=== PATIENT | male | born 1970 | race Caucasian/White ===

== ENCOUNTER 2017-04-02 16:31 | Emergency (ER) | payer MEDICAID, OTHER ==
[~2017-04-02] VITALS: Ht 170.2 cm; Wt 81.6 kg
--- NOTE | 2017-04-02 16:35 | NUR ---
C/O SI BY OD ON HEROIN DENIES HI, NAD NOTED, VSS, RESP EVEN AN UNLABORED, AAOX4, VERY PLEASANT AND COMPLIANT WITH CARE. SAFETY MEASURES IMPLEMENTED. WAITING FOR MD BANEGAS.
[2017-04-02 17:01] LABS: BASOPHILS # (AUTO) 0.1 /CMM (0.0-0.2); BASOPHILS % (AUTO) 0.6 % (0.0-2.0); EOSINOPHILS # (AUTO) 0.4 /CMM (0.0-0.7); EOSINOPHILS % (AUTO) 4.8 % (0.0-6.0); HEMATOCRIT 41 % (39-51); HEMOGLOBIN 14.3 g/dL (13.5-17.5); LYMPHOCYTES # (AUTO) 2.5 /CMM (0.8-4.8); MEAN CORPUSCULAR HEMOGLOBIN 30 PG (26.0-33.0); MEAN CORPUSCULAR HGB CONC 35 g/dl (31.0-36.0); MEAN CORPUSCULAR VOLUME 87 fL (80-96); MONOCYTES # (AUTO) 0.6 /CMM (0.1-1.30); MONOCYTES % (AUTO) 7.2 % (2.0-12.0); NEUTROPHILS # (AUTO) 4.9 /CMM (1.8-8.9); NEUTROPHILS % (AUTO) 57.4 % (43.0-81.0); PLATELET COUNT (AUTO) 362 /CMM (150-450); RED BLOOD CELL COUNT(AUTO) 4.71 MIL/uL (4.5-6.0); WHITE BLOOD COUNT (AUTO) 8.5 K/uL (4.3-11.0)
[2017-04-02 17:03] LABS: APPEARANCE,URINE Clear (CLEAR); BILIRUBIN,URINE Negative (NEGATIVE); BLOOD, URINE Trace-intact Ery/uL (NEGATIVE); COLOR,URINE Yellow (YELLOW); KETONES,URINE Negative (NEGATIVE); LEUKOCYTE ESTERASE ,URINE Trace (NEGATIVE); NITRITE, URINE Negative (NEGATIVE); PH,URINE 5.5 (5.0-8.0); PROTEIN,URINE Negative (NEGATIVE); UGLUCOSE Negative (NEGATIVE); UROBILINOGEN,URINE 0.2 EU/dL (0.2)
[2017-04-02 17:11] LABS: CALCIUM, SERUM 9.2 mg/dL (8.5-10.1); CARBON DIOXIDE 27 mmol/L (21-32); CHLORIDE 102 mmol/L (98-107); CREATININE 1.2 mg/dL (0.6-1.3); GLUCOSE 111 mg/dL (74-106); SODIUM SERUM 137 mmol/L (136-145); UREA NITROGEN, BLOOD 18 mg/dL (7-18)
[2017-04-02 17:16] LABS: ALANINE AMINOTRANSFERASE 24 U/L (12-78); ALBUMIN 3.9 g/dL (3.4-5.0); ALCOHOL, BLOOD 5 mg/dL (0-0); ALKALINE PHOSPHATASE 82 U/L (46-116); ASPARTATE AMINOTRANSFERASE 34 U/L (15-37); BILIRUBIN,DIRECT 0.1 mg/dL (0.0-0.2); BILIRUBIN,TOTAL 0.4 mg/dL (0.2-1.0); TOTAL PROTEIN, SERUM 7.9 g/dL (6.4-8.2)
[2017-04-02 17:17] LABS: SALICYLATE 1.3 mg/dL (2.8-20.0)
[2017-04-02 17:18] LABS: ACETAMINOPHEN < 2 ug/ml (10-30)
[2017-04-02 17:25] LABS: BACTERIA,URINE Rare /HPF (None Seen); SQUAMOUS EPITHELIAL CELL,UR Few /HPF (None Seen); WBC,URINE NONE SEEN /HPF (0-3)
--- NOTE | 2017-04-02 18:09 | NUR ---
CALLED [facility] FOR PSYCH EVAL
[2017-04-02] MEDS ORDERED: ONDANSETRON 4 MG TAB.RAPDIS SL ONE (20:30)
[2017-04-02] MEDS ORDERED: ONDANSETRON 4 MG TAB.RAPDIS ONE (20:54)
--- NOTE | 2017-04-02 21:03 | NUR ---
Patient is resting comfortably in bed with eyes closed. Easily aroused. VSS
--- NOTE | 2017-04-02 22:11 | NUR ---
CALLED [facility] FOR TRANSPORTATION GOING TO [facility] ETA 90 MIN
--- NOTE | 2017-04-02 22:12 | NUR ---
RN TO RN REPORT CAN BE GIVEN AT [phone], ADMITTING PSYCHIATRIST DR. NORWOOD, ADMITTING DIAGNOSIS BIPOLAR DISORDER.
--- NOTE | 2017-04-02 22:22 | NUR ---
CALLED [facility], FOR REPORT RACHEL, CHARGE NURSE WILL CALL BACK, IF NOT PHONE CALL RETURN WILL CALL AGAIN IN 10 MINS
[2017-04-02 22:40] VITALS: BP 126/78
--- NOTE | 2017-04-02 22:42 | NUR ---
REPORT GIVEN TO SAMMY.
--- NOTE | 2017-04-02 23:21 | NUR ---
Patient is resting comfortably in bed with eyes closed. Easily aroused. VSS
--- NOTE | 2017-04-02 23:43 | NUR ---
[facility] AT BEDSIDE FOR TRANSPORT TO [facility]
== END 2017-04-02 23:45 ==
LOC: ER 16:34
DX: R45.851 Suicidal ideations (principal); F15.10 Other stimulant abuse, uncomplicated; F90.9 Attention-deficit hyperactivity disorder, unspecified type; F17.200 Nicotine dependence, unspecified, uncomplicated; F11.10 Opioid abuse, uncomplicated; F10.10 Alcohol abuse, uncomplicated
CPT/HCPCS: 36415; 80048; 80076; 80305; 80329; 81001; 85025; 99285; A4606; G0480 ×2; Q0162; Z7610; 81000-TC

== ENCOUNTER 2017-04-10 22:31 | Emergency (ER) | payer MEDICAID ==
[~2017-04-10] VITALS: Ht 170.2 cm; Wt 81.6 kg
--- NOTE | 2017-04-10 22:39 | NUR ---
Olive denney in [facility] - 04/10/17 [address] MEYERS AT [facility] FOR MAKENZIE.
--- NOTE | 2017-04-10 22:45 | NUR ---
PT AMBULATORY TO ER BD 12. PT IS C/O SIUICIDAL IDEATION W/ PLAN ON OVERDOSING ON HEROIN. PT APPEARS PARANOID AND SUSPISCIOUS. PLACED ON SI PRECAUTION. PT IS CALM, VERBALLY RESPONSIVE. STABLE VITALS. AWAITING MD BANEGAS.
--- NOTE | 2017-04-10 22:47 | NUR ---
DR MEYERS AT BEDSIDE FOR EVAL.
--- NOTE | 2017-04-10 22:48 | NUR ---
Olive denney in [facility] - 04/10/17 at 2319 by JULIANNA SCOURING TRAIN OPERATOR AT BEDSIDE FOR EMAAL.
--- NOTE | 2017-04-10 22:48 | NUR ---
LOCOMOTIVE ENGINEER ELECTRIC AT BEDSIDE FOR BLOOD DRAW.
[2017-04-10 22:52] LABS: BASOPHILS % (AUTO) 0.5 % (0.0-2.0); EOSINOPHILS # (AUTO) 0.3 /CMM (0.0-0.7); EOSINOPHILS % (AUTO) 2.6 % (0.0-6.0); HEMATOCRIT 44 % (39-51); HEMOGLOBIN 14.6 g/dL (13.5-17.5); LYMPHOCYTES # (AUTO) 2.1 /CMM (0.8-4.8); LYMPHOCYTES % (AUTO) 21.5 % (20.0-44.0); MEAN CORPUSCULAR HEMOGLOBIN 29 PG (26.0-33.0); MEAN CORPUSCULAR HGB CONC 33 g/dl (31.0-36.0); MEAN CORPUSCULAR VOLUME 89 fL (80-96); MONOCYTES # (AUTO) 0.9 /CMM (0.1-1.30); MONOCYTES % (AUTO) 9.6 % (2.0-12.0); NEUTROPHILS # (AUTO) 6.3 /CMM (1.8-8.9); NEUTROPHILS % (AUTO) 65.8 % (43.0-81.0); PLATELET COUNT (AUTO) 274 /CMM (150-450); RDW COEFFICIENT OF VARIATION 13.1 (11.5-15.0); RED BLOOD CELL COUNT(AUTO) 4.96 MIL/uL (4.5-6.0); WHITE BLOOD COUNT (AUTO) 9.5 K/uL (4.3-11.0)
[2017-04-10 22:54] LABS: APPEARANCE,URINE CLEAR (CLEAR); BILIRUBIN,URINE NEGATIVE (NEGATIVE); BLOOD, URINE NEGATIVE Ery/uL (NEGATIVE); KETONES,URINE NEGATIVE (NEGATIVE); LEUKOCYTE ESTERASE ,URINE NEGATIVE (NEGATIVE); NITRITE, URINE NEGATIVE (NEGATIVE); PH,URINE 5.5 (5.0-8.0); PROTEIN,URINE TRACE mg/dl (NEGATIVE); UGLUCOSE NEGATIVE (NEGATIVE); UROBILINOGEN,URINE 0.2 EU/dL (0.2)
[2017-04-10 22:55] LABS: COLOR,URINE DARK YELLOW (YELLOW)
[2017-04-10 22:59] LABS: BACTERIA,URINE Moderate /HPF (None Seen); MUCUS,URINE Few /LPF (None Seen); RBC,URINE 0-2 /HPF (0-2); SPERM,URINE Few /HPF (None Seen); SQUAMOUS EPITHELIAL CELL,UR Few /HPF (None Seen)
[2017-04-10 23:22] LABS: ALANINE AMINOTRANSFERASE 35 U/L (12-78); ALBUMIN 4.2 g/dL (3.4-5.0); ALCOHOL, BLOOD < 3 mg/dL (0-0); ALKALINE PHOSPHATASE 78 U/L (46-116); ASPARTATE AMINOTRANSFERASE 26 U/L (15-37); BILIRUBIN,DIRECT 0.1 mg/dL (0.0-0.2); BILIRUBIN,TOTAL 0.9 mg/dL (0.2-1.0); CALCIUM, SERUM 9.4 mg/dL (8.5-10.1); CARBON DIOXIDE 26 mmol/L (21-32); CHLORIDE 103 mmol/L (98-107); CREATININE 1.1 mg/dL (0.6-1.3); GLUCOSE 102 mg/dL (74-106); POTASSIUM 3.9 mmol/L (3.5-5.1); SODIUM SERUM 137 mmol/L (136-145); TOTAL PROTEIN, SERUM 8.2 g/dL (6.4-8.2); UREA NITROGEN, BLOOD 21 mg/dL (7-18)
[2017-04-10 23:25] LABS: ACETAMINOPHEN 0 ug/ml (10-30); SALICYLATE 0.7 mg/dL (2.8-20.0)
--- NOTE | 2017-04-10 23:40 | NUR ---
REPORT TO CHARGE NURSE STEPHEN FOR ELOISE.
--- NOTE | 2017-04-11 08:16 | NUR ---
CALLED FOR FOOD TRAY
--- NOTE | 2017-04-11 09:10 | NUR ---
CALLED [facility] FOR UPDATE ON BED - SPOKE WITH TENISHA WHO STATED THAT THEY ARE EXPECTING DISCHARGES TODAY BUT BEDS MAY NOT BE AVAILABLE UNTIL 1200 TODAY - THEY WILL CALL IF ANYTHING IS AVAILABLE SOONER
[2017-04-11 11:25] VITALS: BP 135/85
--- NOTE | 2017-04-11 11:25 | NUR ---
Patient eloped from facility. ER notified. DR JOHNSON
== END 2017-04-11 11:27 | disposition left against medical advice (07) ==
LOC: ER 22:33
DX: R45.851 Suicidal ideations (principal); F31.9 Bipolar disorder, unspecified; F90.9 Attention-deficit hyperactivity disorder, unspecified type; F17.200 Nicotine dependence, unspecified, uncomplicated
CPT/HCPCS: 36415; 80048; 80076; 80305; 80329; 81001; 85025; 87086; 99284; A4606; G0480 ×2; Z7610; 81000-TC

== ENCOUNTER 2017-10-26 08:28 | Emergency (ER) | payer MEDICAID, OTHER ==
[~2017-10-26] VITALS: Ht 170.2 cm; Wt 81.6 kg
--- NOTE | 2017-10-26 09:00 | NUR ---
PT [id number] WITH C/O DEPRESSION AND SI. SEEN BY FOR EVAL. PT NOTED ANXIOUS, FLUSHED, COOPERATIVE AND DIRECTABLE. VSS. SAFETY AND COMFORYT MEASURES PROVIDED. WILL MONITOR.
[2017-10-26 09:01] LABS: BASOPHILS % (AUTO) 0.1 % (0.0-2.0); EOSINOPHILS % (AUTO) 2.2 % (0.0-6.0); HEMATOCRIT 48 % (39-51); HEMOGLOBIN 16.7 g/dL (13.5-17.5); LYMPHOCYTES # (AUTO) 2.4 /CMM (0.8-4.8); MEAN CORPUSCULAR HGB CONC 35 g/dl (31.0-36.0); MEAN CORPUSCULAR VOLUME 89 fL (80-96); MONOCYTES # (AUTO) 0.6 /CMM (0.1-1.30); NEUTROPHILS # (AUTO) 8.6 /CMM (1.8-8.9); NEUTROPHILS % (AUTO) 72.7 % (43.0-81.0); PLATELET COUNT (AUTO) 367 /CMM (150-450); RDW COEFFICIENT OF VARIATION 12.2 (11.5-15.0); RED BLOOD CELL COUNT(AUTO) 5.44 MIL/uL (4.5-6.0); WHITE BLOOD COUNT (AUTO) 11.9 K/uL (4.3-11.0)
[2017-10-26 09:17] LABS: APPEARANCE,URINE Clear (CLEAR); BILIRUBIN,URINE Negative (NEGATIVE); BLOOD, URINE Negative Ery/uL (NEGATIVE); KETONES,URINE Negative (NEGATIVE); LEUKOCYTE ESTERASE ,URINE Negative (NEGATIVE); NITRITE, URINE Negative (NEGATIVE); PROTEIN,URINE Negative (NEGATIVE); UGLUCOSE Negative (NEGATIVE); UROBILINOGEN,URINE 0.2 EU/dL (0.2)
[2017-10-26 09:19] LABS: COLOR,URINE Dark Yellow (YELLOW)
[2017-10-26 09:29] LABS: ALANINE AMINOTRANSFERASE 23 U/L (12-78); ALBUMIN 4.2 g/dL (3.4-5.0); ALKALINE PHOSPHATASE 88 U/L (46-116); BILIRUBIN,DIRECT 0.2 mg/dL (0.0-0.2); BILIRUBIN,TOTAL 0.9 mg/dL (0.2-1.0); CALCIUM, SERUM 9.2 mg/dL (8.5-10.1); CARBON DIOXIDE 29 mmol/L (21-32); CHLORIDE 100 mmol/L (98-107); CREATININE 1.2 mg/dL (0.6-1.3); POTASSIUM 4.5 mmol/L (3.5-5.1); SODIUM SERUM 137 mmol/L (136-145); TOTAL PROTEIN, SERUM 8.2 g/dL (6.4-8.2); UREA NITROGEN, BLOOD 19 mg/dL (7-18)
[2017-10-26 09:38] LABS: ASPARTATE AMINOTRANSFERASE 22 U/L (15-37); GLUCOSE 101 mg/dL (74-106)
[2017-10-26 09:39] LABS: ALCOHOL, BLOOD < 3 mg/dL (0-0)
--- NOTE | 2017-10-26 09:53 | NUR ---
Patient is resting comfortably in bed. Easily aroused. VSS
--- NOTE | 2017-10-26 10:11 | NUR ---
brien aguilar called for eval
--- NOTE | 2017-10-26 11:10 | NUR ---
MARILYNN HARRIS LCSW AT BS FOR EVAL.
[2017-10-26] MEDS ORDERED: OLANZAPINE 5 MG TABLET ONE (11:47)
[2017-10-26] MEDS ORDERED: OLANZAPINE 5 MG/TAB.RAPDIS PO ONE (12:00)
--- NOTE | 2017-10-26 12:19 | NUR ---
RECEIVED A CALL FROM LUAN AT [facility], NUMBER FOR NURSE TO NURSE REPORT AT [facility] IS , CHARGE NURSE IS WICHO.
--- NOTE | 2017-10-26 13:19 | NUR ---
[facility] AND SPOKE TO MANSI VARGAS, NO ROOM AVAILABLE OF NOW.
--- NOTE | 2017-10-26 15:00 | NUR ---
Patient is resting comfortably in bed with eyes closed. Easily aroused. VSS
--- NOTE | 2017-10-26 17:46 | NUR ---
DENA TOOK REPORT FOR ELOISE
--- NOTE | 2017-10-26 17:49 | NUR ---
CALLED [facility] TO ARRANGE A BLS TRANSPORT TO [facility]. WAS GIVEN AN ETA PRODUCTION PLANNER TIME OF [phone]. TRIP #: [id number]
--- NOTE | 2017-10-26 19:30 | NUR ---
REPORT GIVEN TO EMS
[2017-10-26 19:31] VITALS: BP 129/79
== END 2017-10-26 19:33 ==
LOC: ER 08:30
DX: F22 Delusional disorders (principal); R45.851 Suicidal ideations; F15.10 Other stimulant abuse, uncomplicated; F32.9 Major depressive disorder, single episode, unspecified; F90.9 Attention-deficit hyperactivity disorder, unspecified type; F17.200 Nicotine dependence, unspecified, uncomplicated
CPT/HCPCS: 36415; 80048-TC; 80076-TC; 80305; 81000-TC; 85025-TC; A4606; G0480; Z7610

== ENCOUNTER 2017-11-05 21:44 | Emergency (ER) | payer OTHER ==
[~2017-11-05] VITALS: Ht 167.6 cm; Wt 86.2 kg
[2017-11-05 22:21] LABS: BASOPHILS % (AUTO) 0.1 % (0.0-2.0); EOSINOPHILS % (AUTO) 2.6 % (0.0-6.0); HEMATOCRIT 47 % (39-51); HEMOGLOBIN 16.1 g/dL (13.5-17.5); LYMPHOCYTES # (AUTO) 2.7 /CMM (0.8-4.8); LYMPHOCYTES % (AUTO) 18.6 % (20.0-44.0); MEAN CORPUSCULAR HGB CONC 34 g/dl (31.0-36.0); MEAN CORPUSCULAR VOLUME 92 fL (80-96); MONOCYTES # (AUTO) 0.8 /CMM (0.1-1.30); MONOCYTES % (AUTO) 5.4 % (2.0-12.0); NEUTROPHILS # (AUTO) 10.8 /CMM (1.8-8.9); NEUTROPHILS % (AUTO) 73.3 % (43.0-81.0); PLATELET COUNT (AUTO) 307 /CMM (150-450); RDW COEFFICIENT OF VARIATION 12.8 (11.5-15.0); RED BLOOD CELL COUNT(AUTO) 5.14 MIL/uL (4.5-6.0); WHITE BLOOD COUNT (AUTO) 14.7 K/uL (4.3-11.0)
[2017-11-05 22:24] LABS: APPEARANCE,URINE CLEAR (CLEAR); BILIRUBIN,URINE NEGATIVE (NEGATIVE); BLOOD, URINE NEGATIVE Ery/uL (NEGATIVE); COLOR,URINE YELLOW (YELLOW); KETONES,URINE NEGATIVE (NEGATIVE); LEUKOCYTE ESTERASE ,URINE NEGATIVE (NEGATIVE); NITRITE, URINE NEGATIVE (NEGATIVE); PH,URINE 5.5 (5.0-8.0); PROTEIN,URINE NEGATIVE (NEGATIVE); UGLUCOSE NEGATIVE (NEGATIVE); UROBILINOGEN,URINE 0.2 EU/dL (0.2)
[2017-11-05 22:37] LABS: CREATININE 1.4 mg/dL (0.6-1.3); POTASSIUM 3.8 mmol/L (3.5-5.1)
--- NOTE | 2017-11-06 01:36 | NUR ---
ART AIRLINE RADIO OPERATOR CALLED FOR PSYCH EVAL
--- NOTE | 2017-11-06 03:16 | NUR ---
PT REC'D A SANDWICH, JUICE, JELLO AND APPLE SAUCE.
--- NOTE | 2017-11-06 07:04 | NUR ---
PATIENT RESTING IN ER BED, NO DISTRESS NOTED, SKIN WARM AND DRY. WILL CONTINUE TO MONITOR
--- NOTE | 2017-11-06 09:48 | NUR ---
CALLED [facility] AND SPOKE TO FAREED, THERE'S NO BED AVAILABLE BED AT [place] AT THIS TIME BUT MIGHT HAVE A BED AT [place]. INSTRUCTED TO CALL CHARGE NURSE AT [place] [phone] AND CAN GO THERE IF APPROVED. WILL CALL IN 20 MIN INSTRUCTED
--- NOTE | 2017-11-06 11:34 | NUR ---
Patient is resting comfortably in bed with eyes closed. Easily aroused. VSS
--- NOTE | 2017-11-06 12:04 | NUR ---
AMBULATORY, WENT TO THE SMOKING AREA TO SMOKE
--- NOTE | 2017-11-06 13:42 | NUR ---
Olive denney in ED - 11/06/17 at 1803 by RHILOMEN Patient is resting comfortably in bed with eyes closed. Easily aroused. VSS
--- NOTE | 2017-11-06 13:42 | NUR ---
Patient is resting comfortably in bed with eyes closed. Easily aroused. VSS
--- NOTE | 2017-11-06 17:36 | NUR ---
NAD. WATCHING TV. VSS
--- NOTE | 2017-11-06 21:50 | NUR ---
RECEIVED REPORT FROM SAM MAZA, PT REFUSED TO DO V/S AT THIS TIME. RISK AND BENEFITS EXPLAINED X3. PT STRONGLY REFUSED.
--- NOTE | 2017-11-06 23:04 | NUR ---
SPOKE TO [facility] SWETHA. [phone], PER LAND DEVELOPER, ALL FACILITIES ARE FULL BEDS AT THIS TIME.
--- NOTE | 2017-11-06 23:55 | NUR ---
Note jumana in ED - 11/06/17 at 2357 by CHARLI Patient discharged to home in stable condition. Written and verbal after care instructions given. Patient verbalizes understanding of instruction. ambulatory with a steady gait. instructed pt not to drive. pt verbalize understanding. pt refused to sign d/c papers. risk and benefits explained x3. pt strongly refused.
--- NOTE | 2017-11-06 23:56 | NUR ---
Patient discharged to home in stable condition. Written and verbal after care instructions given. Patient verbalizes understanding of instruction.
[2017-11-06 23:57] VITALS: BP 116/79
== END 2017-11-06 23:58 | disposition home or self-care (01) ==
LOC: ER 21:48
DX: F15.10 Other stimulant abuse, uncomplicated (principal); F31.9 Bipolar disorder, unspecified; F41.9 Anxiety disorder, unspecified; F10.10 Alcohol abuse, uncomplicated; F17.200 Nicotine dependence, unspecified, uncomplicated; F90.9 Attention-deficit hyperactivity disorder, unspecified type; F11.10 Opioid abuse, uncomplicated
CPT/HCPCS: 36415; 80048-TC; 80305; 81000-TC; 85025-TC; A4606; G0480; Z7610

== ENCOUNTER 2018-11-09 20:13 | Emergency (ER) | payer MEDICAID, OTHER ==
[~2018-11-09] VITALS: Ht 170.2 cm; Wt 81.6 kg
[2018-11-09 22:25] VITALS: BP 141/85
--- NOTE | 2018-11-09 23:06 | NUR ---
PT TO ER BED
[2018-11-09 23:48] LABS: APPEARANCE,URINE Clear (CLEAR); BILIRUBIN,URINE SMALL (NEGATIVE); BLOOD, URINE Negative Ery/uL (NEGATIVE); COLOR,URINE Yellow (YELLOW); KETONES,URINE Negative (NEGATIVE); LEUKOCYTE ESTERASE ,URINE Negative (NEGATIVE); NITRITE, URINE Negative (NEGATIVE); PROTEIN,URINE Trace mg/dl (NEGATIVE); UGLUCOSE Negative (NEGATIVE); UROBILINOGEN,URINE 0.2 EU/dL (0.2)
[2018-11-10 00:13] LABS: BACTERIA,URINE Few /HPF (None Seen); RBC,URINE 0-2 /HPF (0-2); SPERM,URINE Few /HPF (None Seen); SQUAMOUS EPITHELIAL CELL,UR Rare /HPF (None Seen)
== END 2018-11-10 02:46 | disposition home or self-care (01) ==
LOC: ER 20:27
DX: M54.5 Low back pain (principal); M25.511 Pain in right shoulder; F19.10 Other psychoactive substance abuse, uncomplicated; F41.9 Anxiety disorder, unspecified; F31.9 Bipolar disorder, unspecified; F90.9 Attention-deficit hyperactivity disorder, unspecified type; F17.200 Nicotine dependence, unspecified, uncomplicated; F10.10 Alcohol abuse, uncomplicated; F11.10 Opioid abuse, uncomplicated; F15.10 Other stimulant abuse, uncomplicated; Y90.9 Presence of alcohol in blood, level not specified
CPT/HCPCS: 72110-TC; 73030-TC; 81000-TC; 87086-TC

== ENCOUNTER 2024-03-15 13:06 | Emergency (ER) | payer OTHER ==
[~2024-03-15] VITALS: Ht 165.1 cm; Wt 104.3 kg
[2024-03-15 14:10] VITALS: BP 116/59; TEMP 98.4; O2SAT 99
[2024-03-15 14:40] LABS: BASOPHILS # (AUTO) 0.1 K/uL (0.0-0.2); BASOPHILS % (AUTO) 0.9 % (0.0-2.0); EOSINOPHILS # (AUTO) 0.1 K/uL (0.0-0.7); EOSINOPHILS % (AUTO) 0.8 % (0.0-6.0); HEMATOCRIT 49 % (39-51); HEMOGLOBIN 16.8 g/dL (13.5-17.5); LYMPHOCYTES # (AUTO) 2.6 K/uL (0.8-4.8); LYMPHOCYTES % (AUTO) 22.9 % (20.0-44.0); MEAN CORPUSCULAR HEMOGLOBIN 30 PG (26.0-33.0); MEAN CORPUSCULAR HGB CONC 34 g/dl (31.0-36.0); MEAN CORPUSCULAR VOLUME 88 fL (80-96); MONOCYTES # (AUTO) 0.6 K/uL (0.1-1.30); MONOCYTES % (AUTO) 5.6 % (2.0-12.0); NEUTROPHILS # (AUTO) 7.9 K/uL (1.8-8.9); NEUTROPHILS % (AUTO) 69.8 % (43.0-81.0); PLATELET COUNT (AUTO) 306 K/uL (150-450); RED BLOOD CELL COUNT(AUTO) 5.55 MIL/uL (4.5-6.0); RED CELL DISTRIBUTION WIDTH 13.9 % (11.5-15.0); WHITE BLOOD COUNT (AUTO) 11.3 K/uL (4.3-11.0)
[2024-03-15 14:49] LABS: CALCIUM, SERUM 9.8 mg/dL (8.5-10.1); CARBON DIOXIDE 28 mmol/L (21-32); CHLORIDE 101 mmol/L (98-107); CREATININE 1.2 mg/dL (0.6-1.3); GLUCOSE 100 mg/dL (74-106); POTASSIUM 4.1 mmol/L (3.5-5.1); SODIUM SERUM 138 mmol/L (136-145); UREA NITROGEN, BLOOD 16 mg/dL (7-18)
[2024-03-15 14:56] LABS: ACETAMINOPHEN <10 ug/ml (10-30); ALANINE AMINOTRANSFERASE 23 U/L (12-78); ALBUMIN 4.4 g/dL (3.4-5.0); ALCOHOL, BLOOD < 3 mg/dL (0-10); ALKALINE PHOSPHATASE 77 U/L (46-116); ASPARTATE AMINOTRANSFERASE 18 U/L (15-37); BILIRUBIN,DIRECT 0.2 mg/dL (0.0-0.2); BILIRUBIN,TOTAL 1.1 mg/dL (0.2-1.0); SALICYLATE < 2.3 mg/dL (2.8-20.0); TOTAL PROTEIN, SERUM 8.6 g/dL (6.4-8.2)
[2024-03-15 16:06] LABS: APPEARANCE,URINE CLEAR (CLEAR); BILIRUBIN,URINE NEGATIVE (NEGATIVE); BLOOD, URINE NEGATIVE Ery/uL (NEGATIVE); COLOR,URINE YELLOW (YELLOW); KETONES,URINE NEGATIVE (NEGATIVE); LEUKOCYTE ESTERASE ,URINE NEGATIVE (NEGATIVE); NITRITE, URINE NEGATIVE (NEGATIVE); PROTEIN,URINE NEGATIVE (NEGATIVE); UGLUCOSE NEGATIVE (NEGATIVE); UROBILINOGEN,URINE 0.2 EU/dL (0.2)
[2024-03-15 16:10] LABS: AMPHETAMINE, URINE NEGATIVE (NEGATIVE); BARBITURATE, URINE NEGATIVE (NEGATIVE); BENZODIAZEPINE, URINE NEGATIVE (NEGATIVE); CANNABINOID, URINE NEGATIVE (NEGATIVE); COCCAINE, URINE NEGATIVE (NEGATIVE); OPIATE, URINE NEGATIVE (NEGATIVE); PHENCYCLIDINE SCREEN,URINE NEGATIVE (NEGATIVE)
[2024-03-15] MEDS ORDERED: LORAZEPAM 1 MG TABLET ONE (17:53)
[2024-03-15] MEDS: LORAZEPAM 1 MG TABLET PO ONE (17:55)
== END 2024-03-15 20:52 ==
LOC: ER 13:26
DX: R45.851 Suicidal ideations (principal); F31.9 Bipolar disorder, unspecified; F41.9 Anxiety disorder, unspecified; F17.200 Nicotine dependence, unspecified, uncomplicated; Z86.69 Personal history of other diseases of the nervous system and sense organs; Z20.822 Contact with and (suspected) exposure to COVID-19
CPT/HCPCS: 36415; 80048-TC; 80076-TC; 85025-TC; G0480

== ENCOUNTER 2024-04-01 18:34 | Emergency (ER) | payer OTHER | END 2024-04-02 02:12 | disposition left against medical advice (07) | LOC: ER 18:36 | DX: R45.851 Suicidal ideations (principal); Z53.21 Procedure and treatment not carried out due to patient leaving prior to being seen by health care provider ==